=== PATIENT | female | born 1985 | race Two or more races ===

== ENCOUNTER 2019-07-20 16:24 | Emergency (ER) | payer MEDICAID ==
[~2019-07-20] VITALS: Ht 162.6 cm; Wt 66.0 kg
[2019-07-20 18:47] VITALS: BP 110/78
== END 2019-07-20 21:02 | disposition home or self-care (01) ==
LOC: ER 16:24
DX: S70.211A Abrasion, right hip, initial encounter (principal); S39.012A Strain of muscle, fascia and tendon of lower back, initial encounter; S80.819A Abrasion, unspecified lower leg, initial encounter; V49.9XXA Car occupant (driver) (passenger) injured in unspecified traffic accident, initial encounter; Y93.9 Activity, unspecified; Y92.410 Unspecified street and highway as the place of occurrence of the external cause
CPT/HCPCS: 99281